=== PATIENT | female | born 1945 | race Caucasian/White ===

== ENCOUNTER 2024-02-02 07:22 | Day surgery (SDC) | payer MEDICARE ==
[2024-02-02 08:04] VITALS: RESP 16
--- NOTE | 2024-02-02 08:09 | HP ---
HISTORY OF PRESENT ILLNESS: An 78-year-old, denied rectal bleeding. Has new control issues, incontinence, soft stools, change in bowel habits, narrow caliber when formed, stool urgency. The last colonoscopy was in 2014. Family history significant for rectal cancer. 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 She has had hypertension, diabetes, hyperlipidemia, and arthritis. PAST SURGICAL HISTORY: She had cholecystectomy. She had an knee scope in the past, hysterectomy, appendectomy. 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 FAMILY HISTORY: Colon cancer in her father. She has a son who had rectal cancer. SOCIAL HISTORY: No smoking or alcohol abuse. MEDICATIONS: Humalog, gabapentin, glucosamine, Creon, atorvastatin, amlodipine. ALLERGIES: Benazepril. REVIEW OF SYSTEMS: Twelve systems reviewed. No chest pain or palpitations. Other systems negative or noncontributory as above and per preadmission questionnaire. PHYSICAL EXAMINATION: GENERAL: No acute distress. VITAL SIGNS: Height 5 feet. BMI 30.66. HEENT: Sclerae anicteric. NECK: No JVD. CHEST: Equal excursion, nonlabored breathing. CARDIOVASCULAR: Regular rate and rhythm. ABDOMEN: Soft. EXTREMITIES: No cyanosis. NEUROLOGIC: Alert and oriented. Moving extremities symmetrically. PSYCHIATRIC: Appropriate mood and affect. SKIN: Dry. RECTAL: Deferred until time of endoscopy exam. IMPRESSION: History of change in bowel habits, history of some control issues and urgency, change in caliber, as well as family history of rectal cancer and family history of colon cancer. Patient needs a colonoscopy. The risks were explained in detail including bleeding, infection, risk of bowel injury or perforation, risk of bowel injury or perforation, risk of misdiagnosis or incomplete exam, possibility of requiring barium enema or other studies or procedures or referrals, risk of anesthesia or sedation, risk of bowel prep, but not limited to. We will proceed with outpatient colonoscopy under MAC anesthesia as an outpatient. Otherwise, continue medications for hypertension, hyperlipidemia, diabetes, and pancreas insufficiency.
[2024-02-02] MEDS ORDERED: DIPRIVAN 200 MG/20 ML IV ONE ×2 (10:56→11:08)
[2024-02-02 12:05] VITALS: TEMP 96.8; O2SAT 96
[2024-02-02 12:11] VITALS: BP 130/74; PULSE 68
--- NOTE | 2024-02-04 09:12 | OP ---
SURGERY DATE/TIME: 02/02/2024 3386 [id number] PREOPERATIVE DIAGNOSIS: Change in bowel habits. POSTOPERATIVE DIAGNOSES: 1) Some decreased anal sphincter tone. 2) Diverticulosis. 3) Fair bowel preparation. 4) ASA class 3. 5) Withdrawal time 10. 6) Small transverse colon polyp, otherwise fairly normal-appearing mucosa. PROCEDURES: 1) Colonoscopy to terminal ileum. 2) Retrograde ileoscopy. 3) Random cold biopsy of ileum to evaluate for microscopic ileitis. 4) Random cold biopsy of colon to evaluate for microscopic colitis. 5) Hot biopsy piecemeal polypectomy, transverse colon polyp (piecemeal polypectomy) with hot biopsy forceps. SURGEON: Sd Cameron MD. ANESTHESIA: MAC. ESTIMATED BLOOD LOSS: Minimal. DESCRIPTION OF PROCEDURE AND FINDINGS: Consent obtained. The patient was taken to the endoscopy room. MAC anesthesia was induced. After official time-out and no disagreement with planned procedure, on digital rectal exam she had kind of decreased sphincter tone overall. She did have some small internal hemorrhoids. Videocolonoscope passed up through the tortuous sigmoid, descending, transverse, and ascending colon with 2 different staff members putting pressure on the abdomen. The scope easily passed to the cecum and then up the terminal ileum. The terminal ileum was grossly unremarkable. Random cold biopsies were taken to evaluate for microscopic ileitis. Pictures were taken. The scope was carefully pulled back. Pictures of the ileocecal valve and the appendiceal orifice area were also photo documented. Prep overall was only fair and on the limited side. A large amount of liquidy semi-solid stool that was suctioned, irrigated, and cleared as possible, did slightly limit exam for small lesions. The scope was carefully withdrawn. Random cold biopsies were taken of the colon to evaluate for microscopic colitis. Good hemostasis was noted. The mucosa itself appeared fairly unremarkable macroscopically. The scope was pulled back to the transverse colon. A 3 mm polyp was removed with hot biopsy polypectomy in a piecemeal fashion. Piecemeal polypectomy with hot biopsy forceps. Good hemostasis was noted. Appeared to be removed. The scope was carefully removed back through. The left colon had some diverticulosis and there were some small internal hemorrhoids. Again, no signs of any large polyps, masses, or obstructive lesions. No macroscopic inflammation. Her anal sphincter tone appeared to reveal a decrease. Findings discussed with family.
== END 2024-02-02 12:10 | disposition home or self-care (01) ==
LOC: SDC 07:22
PROVIDERS: ATTEND Surgery
DX: D12.3 Benign neoplasm of transverse colon (principal); R19.4 Change in bowel habit; E11.9 Type 2 diabetes mellitus without complications; Z80.0 Family history of malignant neoplasm of digestive organs; K62.89 Other specified diseases of anus and rectum; K57.30 Diverticulosis of large intestine without perforation or abscess without bleeding; K64.8 Other hemorrhoids
CPT/HCPCS: 82947; 99100; J2704